=== PATIENT | female | born 1960 | race Caucasian/White ===

== ENCOUNTER 2018-05-15 17:32 | Emergency (ER) | payer MEDICARE, MEDICAID, SELFPAY ==
[2018-05-15 17:54] VITALS: BP 180/102; PULSE 88; RESP 16; TEMP 36.2; O2SAT 97; BMI 52.4
[2018-05-15] MEDS: HYDROMORPHONE 2 MG INJ 1 MG SUBCUT ×2 (18:23→19:26)
[2018-05-15] MEDS: ONDANSETRON 4 MG ODT PO (18:24)
[2018-05-15 19:06] VITALS: BP 177/89; PULSE 84; RESP 22; O2SAT 98
--- NOTE | 2018-05-16 02:14 | ED.HA ---
HPI - Headache General Chief Complaint: Headache Stated Complaint: MIGRAINE Time Seen by Provider: 05/15/18 17:45 Source: patient and family Mode of arrival: ambulatory Limitations: no limitations History of Present Illness HPI Narrative: Patient presents to the emergency department with a chief complaint of her 1st migraine and some time. It does however present similar to her prior migraines. She is gradual worsening right frontal headache with nausea but no vomiting. She denies focal neurologic findings nor any recent injury. She has no fever or chills. Pain is made worse by bright lights and loud noise and improves in a dark quiet room Complaint: migraine Onset (ago): day(s) Onset description: gradual Location: right and frontal Severity: mild Quality: aching Relieving factors: dark room Exacerbating factors: exertion, light and noise Context: occurred at rest Associated symptoms: nausea Treatments prior to arrival: none Related Data Allergies Allergy/AdvReac Type Severity Reaction Status Date / Time chlorpromazine Allergy Severe Unverified 02/14/18 12:29 [From Thorazine] droperidol [From Inapsine] Allergy Severe Unverified 02/14/18 12:29 ketorolac Allergy Severe Unverified 02/14/18 12:29 meperidine Allergy Severe Unverified 02/14/18 12:29 metoclopramide Allergy Severe Unverified 02/14/18 12:29 morphine Allergy Severe Unverified 02/14/18 12:29 prochlorperazine Allergy Severe Unverified 02/14/18 12:29 sumatriptan Allergy Severe Unverified 02/14/18 12:29 Review of Systems Review of Systems All systems reviewed & are unremarkable except as noted in HPI and below Constitutional Denies chills, Denies fever(s), Reports headache(s), Denies lethargy and Denies weakness Eyes Denies change in vision, Denies eye discharge, Denies irritation and Denies loss of vision ENT Ears, Nose, Mouth, and Throat: Denies change in voice, Reports headache(s), Denies neck pain and Denies sore throat Cardiovascular Denies chest pain, Denies irregular heart rhythm, Denies lightheadedness, Denies palpitations, Denies dyspnea, Denies dyspnea on exertion and Denies orthopnea Respiratory Denies cough, Denies dyspnea, Denies dyspnea on exertion and Denies wheezing Gastrointestinal Gastrointestinal: Denies abdominal pain, Denies change in bowel habits, Denies diarrhea, Reports nausea and Denies vomiting Genitourinary Denies hematuria, Denies flank pain, Denies urinary incontinence and Denies urinary urgency Musculoskeletal Denies neck pain Integumentary/Breasts Denies pruritus, Denies erythema, Denies rash and Denies wounds Neurologic Denies confusion, Reports headache(s), Denies loss of vision and Denies weakness Psychiatric Denies anxiety, Denies confusion, Denies depression, Denies homicidal ideation and Denies suicidal ideation Endocrine Denies palpitations Hematologic/Lymphatic Denies easy bruising Allergic/Immunologic Denies wheezing Exam Narrative Exam Narrative: 58-year-old female resting comfortably in a dark room wearing sunglasses, clutching the right side of her head Initial Vital Signs Initial Vital Signs: Vital Signs Temperature 97.1 F L 05/15/18 17:54 Pulse Rate 88 05/15/18 17:54 Respiratory Rate 16 05/15/18 17:54 Blood Pressure 180/102 H 05/15/18 17:54 Pulse Oximetry 97 05/15/18 17:54 Const General: cooperative, well developed and acute distress Nutritional Appearance: well nourished Orientation: alert, awake, oriented x3 and not confused HENMT Head: normocephalic and atraumatic Ears: external ears normal and TM's normal bilaterally Nose: external nose normal and No nasal discharge Face and sinus: sinuses nontender, face symmetric, no sinus tenderness and No dry mucous membranes Mouth: oral mucosae normal and moist mucous membranes Teeth and gingiva: dentition normal Throat: tonsils normal and uvula midline Eyes General: appearance normal, both eyes and all related structures Eyelids: eyelids normal Conjunctivae: conjunctivae normal Sclera: sclerae normal Pupils: PERRL EOM: EOM intact bilaterally Neck Neck: normal visual inspection, trachea midline, No lymphadenopathy, No midline deformity and No JVD Lymphatic: No lymphedema Cardio Rate: regular rate Rhythm: regular rhythm Heart Sounds: no click, no gallops, no murmurs and no rubs Pulses: normal peripheral pulses Back/Spine/Pelvis Back: No CVA tenderness Cervical Spine: cervical ROM normal and No pain with cervical ROM Thoracic/Lumbar Spine: thoracic and lumbar spine normal to inspection Neuro General: alert, oriented x3, gait normal and no focal motor deficits Speech: speech normal Extrem General: full ROM, no clubbing, cyanosis or edema, no pedal edema and no calf tenderness Course Orders Ordered: Discontinued Medications Hydromorphone HCl (Dilaudid) 1 mg SUBCUT NOW ONE Stop: 05/15/18 18:16 Last Admin: 05/15/18 18:23 Dose: 1 mg Hydromorphone HCl (Dilaudid) 1 mg SUBCUT NOW ONE Stop: 05/15/18 19:14 Last Admin: 05/15/18 19:26 Dose: 1 mg Ondansetron HCl (Zofran Odt) 4 mg PO NOW ONE Stop: 05/15/18 18:16 Last Admin: 05/15/18 18:24 Dose: 4 mg Reevaluation(s) Reevaluation #1: Patient feels tremendous relief after above-stated therapies. Vital Signs - 8 hr 05/15/18 19:06 Pulse Rate 84 Respiratory Rate 22 Blood Pressure [Left Wrist] 177/89 H Pulse Oximetry 98 MDM - Headache Differential Diagnosis Differential diagnosis: Likely migraine Medical Records Attestation: I reviewed the patient's medical records. MDM Narrative Medical decision making narrative: Patient has longstanding history of migraines and this follows the typical pattern. Her exam was unremarkable Discharge Plan Departure Patient Disposition: Home, Self-Care Clinical Impression: Migraine headache without aura Discharge Date/Time: 05/15/18 19:45 Interventions: ED Discharge Assessment Last Done: 05/15/18 20:07 Instructions: DI for Migraine Activity Restrictions/Additional Instructions: *You have been diagnosed with [ acute breakthrough migraine] *What to do: * continue to take medications as directed *Follow up with your primary care provider in 2-3 days *Return to ER if you should have [such as] [or] any new, worsening or concerning symptoms Referrals: Venkat Pandya, [Primary Care Provider] -
== END 2018-05-15 19:45 | disposition home or self-care (01) ==
PROVIDERS: Emergency Provider Emergency Medicine; Family Provider Family Medicine; PCP Family Medicine
DX: G43.009 Migraine without aura, not intractable, without status migrainosus (principal)
CPT/HCPCS: 96372; 99282; 99283; J1170

== ENCOUNTER → 2019-08-14 11:54 | Outpatient (CLI) | payer MEDICARE, MEDICAID, SELFPAY ==
--- NOTE | 2019-08-14 | DI.CT.S_ITS ---
PROCEDURE: CT KIDNEY URETER BLADDER (KUB) INDICATIONS: HISTORY OF KIDNEY STONES TECHNIQUE: Noncontrast 5 mm thick sections acquired from the diaphragms to the symphysis. 5 mm thick coronal and sagittal reformats were then performed. For radiation dose reduction, the following was used: automated exposure control, adjustment of mA and/or kV according to patient size. COMPARISON: Outside Film, CT, CT ABDOMEN PELVIS WITHOUT CONTRAST, 12/02/2018, 18:24. [facility], CT, KIDNEY/ URETER/BLADDER, 08/26/2015, 13:57. FINDINGS: Image quality: Mildly reduced by large body habitus. Lung bases: Lung bases are clear. Heart size is normal. Urinary system: Both kidneys are normal in size. No left-sided kidney stones but there is a newly identified calculus within the nondistended collecting system of the right kidney, lower aspect, measuring only 2-3 mm in maximal dimension. The left collecting system contains no calculus but is slightly smaller than the collecting system on the right. More inferiorly, along the right ureter, note is made of a 3 x 7 mm calcification slightly lower than the presence of a 3 mm calculus in that area 12/02/[address] scanning from [facility]. No perinephric fat stranding. Both ureters appear non-dilated throughout their expected courses. Bladder wall thickness is normal; no calcified bladder stones. Other solid organs: Liver is normal in size. Gallbladder appears normal. Pancreas is normal in contours. Spleen is normal in size. No adrenal nodules. Peritoneum and bowel: Unenhanced bowel loops demonstrate normal wall thickness and caliber. No free fluid or air. Nodes and vessels: No retroperitoneal or mesenteric adenopathy by size criteria. Aorta and inferior vena cava are normal in caliber. Abdominal wall: No ventral hernias. Pelvis: No free pelvic fluid. No inguinal hernias or adenopathy. Bones: No suspicious bony lesions. No vertebral body compression fractures. IMPRESSION: 1. Within the collecting system of the right kidney there is a 2 x 3 mm nonobstructive calculus, lower third. Next 2. Within the right ureter a 3 x 7 mm calcification is present within the distal ureter in the pelvis, slightly lower than the presence of a punctate calculus measuring approximately 3 x 3 mm on prior [facility] CT scanning 12/02/18. This calcification being present over an extended period of time may be associated with down regulation of urine outflow from the right kidney, and for this reason consideration of ureteral stent is recommended. Dictated by: Darnell Bloom M.D. on 08/14/2019 at 12:21 Approved by: Darnell Bloom M.D. on 08/14/2019 at 12:27
== END ==
PROVIDERS: PCP Family Medicine; Visit Provider Urology
DX: N28.89 Other specified disorders of kidney and ureter (principal); N23 Unspecified renal colic; Z87.442 Personal history of urinary calculi
CPT/HCPCS: 74176

== ENCOUNTER 2019-08-14 12:07 | Emergency (ER) | payer MEDICARE, MEDICAID, SELFPAY ==
[2019-08-14 12:12] VITALS: BP 116/104; PULSE 116; RESP 22; O2SAT 97; BMI 50.8
[2019-08-14 12:32] VITALS: TEMP 36.7
[2019-08-14 12:55] LABS: Add Manual Diff / Slide Review NO; Basophils Absolute Auto 100 /uL (0-100); Basophils Percent Auto 0.8 % (0-2); Eosinophils Absolute Auto 300 /uL (0-450); Eosinophils Percent Auto 3.4 % (2-4); Hematocrit 43.1 % (36-46); Hemoglobin 14.7 g/dL (12.0-16.0); Lymphocytes Absolute Auto 2300 /uL (1100-4500); Mean Corpuscular Hemoglobin 29.2 PG (26-34); Mean Corpuscular Volume 85.9 fL (80-100); Monocytes Absolute Auto 600 /uL (0-900); Monocytes Percent Auto 5.9 % (3-14); Neutrophils Absolute Auto 7000 /uL (1500-7000); Neutrophils Percent Auto 67.9 % (50-75); Platelet Count 283 X10^3/uL (150-400); Red Blood Cell Count 5.02 X10^6/uL (4.0-5.2); Red Cell Distribution Width 14.4 % (11.6-14.8); White Blood Cell Count 10.3 X10^3/uL (4.5-11.0)
[2019-08-14 12:58] LABS: INR 0.9 (0.9-1.3); Prothrombin Time 10.7 SECONDS (10.1-12.7)
[2019-08-14 13:01] LABS: PTT Partial Thromboplastin Tim 35 SECONDS (26.4-36.2)
[2019-08-14 13:03] LABS: Alanine Aminotransferase 22 IU/L (9-52); Albumin 4.5 g/dL (3.5-5.0); Albumin Globulin Ratio 1.5 (1.0-2.8); Alkaline Phosphatase 90 U/L (38-126); Aspartate Aminotransferase 28 IU/L (14-36); BUN Creatinine Ratio 22.2 (6-22); Bilirubin Total 0.3 mg/dL (0.2-1.3); Blood Urea Nitrogen 20 mg/dL (7-17); Calcium 9.8 mg/dL (8.4-10.2); Carbon Dioxide 24 mmol/L (22-32); Chloride 104 mmol/L (98-107); Estimated Glomerular Filt Rate > 60.0 mL/min (>60); Glucose 140 mg/dL (70-100); HEMOLYSIS < 15 (0-50); Lipase 84 U/L (23-300); Potassium 3.5 mmol/L (3.4-5.1); Sodium 141 mmol/L (137-145); Total Protein 7.5 g/dL (6.3-8.2)
[2019-08-14 13:50] VITALS: BP 151/84; PULSE 102; RESP 19; O2SAT 98
[2019-08-14 14:00] VITALS: BP 132/106; PULSE 99; RESP 18; O2SAT 99
[2019-08-14] MEDS: ONDANSETRON 4 MG ODT SL (14:09)
[2019-08-14] MEDS: HYDROMORPHONE 1 MG INJ IM (14:09)
--- NOTE | 2019-08-14 19:34 | ED.FEMALEGU ---
HPI - Female Genitourinary General Chief complaint: Urogenital-Female Stated complaint: states kidney stone Time Seen by Provider: 08/14/19 12:13 Source: patient Mode of arrival: Ambulatory Limitations: no limitations History of Present Illness HPI Narrative: 59-year-old female nonsmoker with history of kidney stones and hypertension presents to the emergency department with a chief complaint of severe right flank pain with radiation into her groin. She denies provocation or palliation. She denies fever, chills nor nausea or vomiting. She had a CT as an outpatient noting a stone and has an appointment with urology tomorrow. MD Complaint: pelvic pain and other Onset (ago): hour(s) Location: RLQ Female Urogenital Radiation: R Flank Severity: mild Quality: Aching and Burning Duration: intermittent Relieving factors: none Patient : No Related Data Home Medications Medication Instructions Recorded Confirmed albuterol sulfate [Ventolin HFA] 2 puff INHALATION Q4-6H PRN 08/14/19 08/14/19 amlodipine 10 mg PO DAILY 08/14/19 08/14/19 buspirone 10 mg PO DAILY 08/14/19 08/14/19 aauydryhrf-mleafcuhnjfdk-tfzi 1 cap PO Q4H PRN 08/14/19 08/14/19 butorphanol tartrate 1 - 2 spray INTRANASAL PRN PRN 08/14/19 08/14/19 celecoxib 200 mg PO BID 08/14/19 08/14/19 conjugated estrogens [Premarin] 1.25 mg PO DAILY 08/14/19 08/14/19 escitalopram oxalate 20 mg PO BID 08/14/19 08/14/19 gabapentin 300 mg PO TID 08/14/19 08/14/19 levothyroxine 200 mcg PO DAILY 08/14/19 08/14/19 lisinopril 10 mg PO DAILY 08/14/19 08/14/19 tamsulosin 0.4 mg PO DAILY 08/14/19 08/14/19 tizanidine 4 mg PO TID PRN 08/14/19 08/14/19 Previous Rx's Medication Instructions Recorded oxycodone 5 mg PO Q8H PRN #14 tab 08/14/19 Allergies Allergy/AdvReac Type Severity Reaction Status Date / Time chlorpromazine Allergy Severe Unverified 02/14/18 12:29 [From Thorazine] droperidol [From Inapsine] Allergy Severe Unverified 02/14/18 12:29 ketorolac Allergy Severe Unverified 02/14/18 12:29 meperidine Allergy Severe Unverified 02/14/18 12:29 metoclopramide Allergy Severe Unverified 02/14/18 12:29 morphine Allergy Severe Unverified 02/14/18 12:29 prochlorperazine Allergy Severe Unverified 02/14/18 12:29 sumatriptan Allergy Severe Unverified 02/14/18 12:29 Review of Systems Constitutional Constitutional: Denies chills, Denies fatigue, Denies fever(s), Denies frequent falls, Denies lethargy and Denies weakness Eyes Eyes: Denies change in vision, Denies eye discharge, Denies irritation and Denies loss of vision ENT Ears, Nose, Mouth, and Throat: Denies change in voice, Denies dizziness, Denies neck pain, Denies sore throat and Denies throat swelling Cardiovascular Cardiovascular: Denies chest pain, Denies irregular heart rhythm, Denies lightheadedness, Denies palpitations, Denies dyspnea, Denies dyspnea on exertion and Denies orthopnea Respiratory Respiratory: Denies cough, Denies dyspnea, Denies dyspnea on exertion and Denies wheezing Gastrointestinal Gastrointestinal: Denies abdominal pain, Denies change in bowel habits, Denies diarrhea, Denies nausea and Denies vomiting Genitourinary Genitourinary: Denies hematuria, Denies flank pain, Denies urinary incontinence and Denies urinary urgency Musculoskeletal Musculoskeletal: Denies back pain, Denies muscle weakness, Denies neck pain, Denies numbness and Denies tingling Integumentary/Breasts Skin/Breast: Denies pruritus, Denies erythema, Denies rash and Denies wounds Neurologic Neurologic: Denies behavioral changes, Denies confusion, Denies dizziness, Denies frequent falls, Denies loss of vision, Denies numbness, Denies tingling and Denies weakness Psychiatric Psychiatric: Denies anxiety, Denies behavioral changes, Denies confusion, Denies depression, Denies homicidal ideation and Denies suicidal ideation Endocrine Endocrine: Denies fatigue, Denies flushing and Denies palpitations Hematologic/Lymphatic Hematologic/Lymphatic: Denies easy bruising Allergic/Immunologic Allergic/Immunologic: Denies urticaria, Denies throat swelling and Denies wheezing PFSH Social History Smoking Status: Never smoker Social History Smoking Status: Never smoker Exam Narrative Exam Narrative: GENERAL: [59] year old patient appears stated age. Well-nourished, well-developed patient, in obvious pain HEAD: Atraumatic. Normocephalic. EYES: Pupils equal round and reactive. Extraocular motions intact. No scleral icterus. No injection or drainage. ENT: Nose without bleeding, purulent drainage. Throat without erythema, tonsillar hypertrophy or exudate. Airway patent. NECK: Trachea midline. Non tender CARDIOVASCULAR: Regular rate and rhythm without murmurs, gallops, or rubs. RESPIRATORY: Clear to auscultation. Breath sounds equal bilaterally. No wheezes, rales, or rhonchi. GASTROINTESTINAL: Abdomen soft, non-tender, nondistended. EXTREMITIES: No edema or joint tenderness. BACK: Nontender without deformity or crepitance. No flank tenderness. NEURO: AOx3. SKIN: No rash or erythema of visible areas Initial Vital Signs Initial Vital Signs: Vital Signs Pulse Rate 116 H 08/14/19 12:12 Respiratory Rate 22 08/14/19 12:12 Blood Pressure 116/104 H 08/14/19 12:12 Pulse Oximetry 97 08/14/19 12:12 Course Orders Ordered: ED Orders 08/14/19 12:44 Complete Blood Count AUTO DIFF Stat Comprehensive Metabolic Panel Stat Lipase Stat Partial Thromboplastin Time Stat Prothrombin Time INR Stat 08/14/19 12:58 EKG-12 Lead Stat Discontinued Medications Hydromorphone HCl (Dilaudid) 1 mg IM NOW ONE Stop: 08/14/19 14:02 Last Admin: 08/14/19 14:09 Dose: 1 mg Documented by: SHRUTI Ondansetron HCl (Zofran Odt) 4 mg SL NOW ONE Stop: 08/14/19 14:02 Last Admin: 08/14/19 14:09 Dose: 4 mg Documented by: SHRUTI Vital Signs Vital signs: Vital Signs - 8 hr 08/14/19 12:12 08/14/19 12:32 08/14/19 13:50 Temperature 98.0 F Pulse Rate 116 H 102 H Respiratory Rate 22 19 Blood Pressure 116/104 H Blood Pressure [Right Wrist] 151/84 H Pulse Oximetry 97 98 08/14/19 14:00 Temperature Pulse Rate 99 H Respiratory Rate 18 Blood Pressure Blood Pressure [Right Wrist] 132/106 H Pulse Oximetry 99 MDM - Female Genitourinary Lab Data Result diagrams: 08/14/19 12:44 08/14/19 12:44 Labs: Lab Results 08/14/19 08/14/19 08/14/19 Range/Units 12:44 12:44 12:44 WBC 10.3 (4.5-11.0) X10^3/uL RBC 5.02 (4.0-5.2) X10^6/uL Hgb 14.7 (12.0-16.0) g/dL Hct 43.1 (36-46) % MCV 85.9 (80-100) fL MCH 29.2 (26-34) PG MCHC 34.0 (30-36) % RDW 14.4 (11.6-14.8) % Plt Count 283 (150-400) X10^3/uL Neut % (Auto) 67.9 (50-75) % Lymph % (Auto) 22.0 L (25-40) % [place] % (Auto) 5.9 (3-14) % Eos % (Auto) 3.4 (2-4) % Baso % (Auto) 0.8 (0-2) % Neut # (Auto) 7000 (1060-4909) /uL Lymph # (Auto) 2300 (4165-9515) /uL [place] # (Auto) 600 (0-900) /uL Eos # (Auto) 300 (0-450) /uL Baso # (Auto) 100 (0-100) /uL PT 10.7 (10.1-12.7) SECONDS INR 0.9 (0.9-1.3) APTT 35 (26.4-36.2) SECONDS Sodium 141 (137-145) mmol/L Potassium 3.5 (3.4-5.1) mmol/L Chloride 104 (98-107) mmol/L Carbon Dioxide 24 (22-32) mmol/L BUN 20 H (7-17) mg/dL Creatinine 0.90 (0.52-1.04) mg/dL Estimated GFR > 60.0 (>60) mL/min BUN/Creatinine Ratio 22.2 H (6-22) Glucose 140 H (70-100) mg/dL Calcium 9.8 (8.4-10.2) mg/dL Total Bilirubin 0.3 (0.2-1.3) mg/dL AST 28 (14-36) IU/L ALT 22 (9-52) IU/L Alkaline Phosphatase 90 (38-126) U/L Total Protein 7.5 (6.3-8.2) g/dL Albumin 4.5 (3.5-5.0) g/dL Globulin 3.0 (1.7-4.1) g/dL Albumin/Globulin Ratio 1.5 (1.0-2.8) Lipase 84 (23-300) U/L Urine Dip Bedside Urine Glucose Negative Bedside Urine Bilirubin - Negative Bedside Urine Ketone - Negative Urine Specific [place] 1.015 Bedside Urine Occult Blood +/- Bedside Urine pH 5.5 Bedside Urine Protein - Negative Bedside Urine Urobilinogen - Negative Bedside Urine Nitrite - Negative Bedside Urine Leukocytes - Negative Esterase Imaging Data CT scan - abdomen: Radiologist's impression: [place] [address] CT Scan Report Signed Patient: Chayito Taylor R#: [id number] : 2Acct:[id number] Age/Sex: 59 / FDate of Service: 08/14/19 Loc: CT Accession Number: [id number] Procedure: CT kidney ureter bladder (KUB) Ordering Provider: Enid Walters MD PROCEDURE: CT KIDNEY URETER BLADDER (KUB) INDICATIONS: HISTORY OF KIDNEY STONES TECHNIQUE: Noncontrast 5 mm thick sections acquired from the diaphragms to the symphysis. 5 mm thick coronal and sagittal reformats were then performed. For radiation dose reduction, the following was used: automated exposure control, adjustment of mA and/or kV according to patient size. COMPARISON: Outside Film, CT, CT ABDOMEN PELVIS WITHOUT CONTRAST, 12/02/2018, 18:24. [facility], CT, KIDNEY/ URETER/BLADDER, 08/26/2015, 13:57. FINDINGS: Image quality: Mildly reduced by large body habitus. Lung bases: Lung bases are clear. Heart size is normal. Urinary system: Both kidneys are normal in size. No left-sided kidney stones but there is a newly identified calculus within the nondistended collecting system of the right kidney, lower aspect, measuring only 2-3 mm in maximal dimension. The left collecting system contains no calculus but is slightly smaller than the collecting system on the right. More inferiorly, along the right ureter, note is made of a 3 x 7 mm calcification slightly lower than the presence of a 3 mm calculus in that area 12/02/[address] scanning from [facility]. No perinephric fat stranding. Both ureters appear non-dilated throughout their expected courses. Bladder wall thickness is normal; no calcified bladder stones. Other solid organs: Liver is normal in size. Gallbladder appears normal. Pancreas is normal in contours. Spleen is normal in size. No adrenal nodules. Peritoneum and bowel: Unenhanced bowel loops demonstrate normal wall thickness and caliber. No free fluid or air. Nodes and vessels: No retroperitoneal or mesenteric adenopathy by size criteria. Aorta and inferior vena cava are normal in caliber. Abdominal wall: No ventral hernias. Pelvis: No free pelvic fluid. No inguinal hernias or adenopathy. Bones: No suspicious bony lesions. No vertebral body compression fractures. IMPRESSION: 1. Within the collecting system of the right kidney there is a 2 x 3 mm nonobstructive calculus, lower third. Next 2. Within the right ureter a 3 x 7 mm calcification is present within the distal ureter in the pelvis, slightly lower than the presence of a punctate calculus measuring approximately 3 x 3 mm on prior [facility] CT scanning 12/02/18. This calcification being present over an extended period of time may be associated with down regulation of urine outflow from the right kidney, and for this reason consideration of ureteral stent is recommended. Dictated by: Darnell Bloom M.D. on 08/14/2019 at 12:21 Approved by: Darnell Bloom M.D. on 08/14/2019 at 12:27 Discharge Plan Departure Patient Disposition: Home Clinical Impression: Kidney calculi Discharge Date/Time: 08/14/19 14:25 Instructions: DI for Kidney Stones Activity Restrictions/Additional Instructions: *You have been diagnosed with [right-sided kidney stone] *What to do: *Take medications as directed *Follow up with your urologist as planned. Let them know you were seen in the Emergency Department and that we ask that you be seen in follow up *Return to ER if you should have any new, worsening or concerning symptoms Prescriptions: New oxycodone 5 mg tablet 5 mg PO Q8H PRN (Reason: pain) Qty: 14 RF: 0 No Action celecoxib 200 mg capsule 200 mg PO BID RF: 0 butorphanol tartrate 10 mg/mL spray,non-aerosol 1 - 2 spray INTRANASAL PRN PRN (Reason: Headache) RF: 0 dcjumgkfdc-dohuvngmvnedg-iufu 50-325-40 mg capsule 1 cap PO Q4H PRN (Reason: Headache) RF: 0 tizanidine 4 mg tablet 4 mg PO TID PRN (Reason: Spasms) RF: 0 tamsulosin 0.4 mg capsule 0.4 mg PO DAILY RF: 0 amlodipine 10 mg tablet 10 mg PO DAILY RF: 0 buspirone 10 mg tablet 10 mg PO DAILY RF: 0 lisinopril 10 mg tablet 10 mg PO DAILY RF: 0 gabapentin 300 mg capsule 300 mg PO TID RF: 0 levothyroxine 200 mcg tablet 200 mcg PO DAILY RF: 0 albuterol sulfate [Ventolin HFA] 90 mcg/actuation HFA aerosol inhaler 2 puff inhalation Q4-6H PRN (Reason: Shortness Of Breath Or Wheezing) RF: 0 Premarin 1.25 mg tablet 1.25 mg PO DAILY RF: 0 escitalopram oxalate 20 mg tablet 20 mg PO BID RF: 0 Referrals: Venkat Pandya DO [Primary Care Provider] -
== END 2019-08-14 14:25 | disposition home or self-care (01) ==
PROVIDERS: Emergency Provider Emergency Medicine; PCP Family Medicine
DX: N20.0 Calculus of kidney (principal); Z87.442 Personal history of urinary calculi; R10.9 Unspecified abdominal pain; N28.89 Other specified disorders of kidney and ureter; N23 Unspecified renal colic
CPT/HCPCS: 36415; 74176; 80053; 81003; 83690; 85025; 85610; 85730; 93005; 96372; 99283; 99284; J1170

== ENCOUNTER 2023-10-31 17:35 | Emergency (ER) | payer MEDICARE, MEDICAID, SELFPAY ==
[2023-10-31 17:42] VITALS: BP 174/94; PULSE 83; RESP 22; TEMP 36.9; O2SAT 95; BMI 46.5
--- NOTE | 2023-10-31 19:26 | ED.HA ---
HPI - Headache General Chief Complaint: Headache Stated Complaint: migraine T-3 Time Seen by Provider: 10/31/23 18:49 Source: patient Mode of arrival: Wheelchair Limitations: no limitations History of Present Illness HPI Narrative: Patient is a 63-year-old female. Has a longstanding history of migraine headaches. She normally takes intranasal stadol and Fioricet however she has been out of her intranasal medication. She has a prescription for this it just has not come into the male. She has had 3 days of what she describes as 1 of her typical migraines. Yesterday she went to an outside emergency department. She stated that they were going to give her medications that she was allergic to so she decided to leave without being treated. She arrives to the emergency department today with continued headaches. No neck pain. No fevers. Trauma. Related Data Home Medications Medication Instructions Recorded Confirmed albuterol sulfate 90 mcg/actuation 2 puff inhalation Q4-6H PRN 08/14/19 08/14/19 aerosol inhaler (Ventolin HFA) Shortness Of Breath Or Wheezing amlodipine 10 mg tablet 10 mg PO DAILY 08/14/19 08/14/19 buspirone 10 mg tablet 10 mg PO DAILY 08/14/19 08/14/19 ehmeswmzip-vgqoahnzaswip-ulfnkmbn 1 cap PO Q4H PRN Headache 08/14/19 08/14/19 50 mg-325 mg-40 mg capsule butorphanol 10 mg/mL nasal spray 1 - 2 spray intranasal PRN PRN 08/14/19 08/14/19 Headache celecoxib 200 mg capsule 200 mg PO BID 08/14/19 08/14/19 conjugated estrogens 1.25 mg 1.25 mg PO DAILY 08/14/19 08/14/19 tablet (Premarin) escitalopram oxalate 20 mg tablet 20 mg PO BID 08/14/19 08/14/19 gabapentin 300 mg capsule 300 mg PO TID 08/14/19 08/14/19 levothyroxine 200 mcg tablet 200 mcg PO DAILY 08/14/19 08/14/19 lisinopril 10 mg tablet 10 mg PO DAILY 08/14/19 08/14/19 tamsulosin 0.4 mg capsule 0.4 mg PO DAILY 08/14/19 08/14/19 tizanidine 4 mg tablet 4 mg PO TID PRN Spasms 08/14/19 08/14/19 Previous Rx's Medication Instructions Recorded oxycodone 5 mg tablet 5 mg PO Q8H PRN pain #14 tabs 08/14/19 Allergies Allergy/AdvReac Type Severity Reaction Status Date / Time chlorpromazine Allergy Severe Swelling Unverified 10/31/23 17:42 [From Thorazine] of Lip/Tongue/Throat droperidol [From Inapsine] Allergy Severe Seizure Unverified 10/31/23 17:47 ketorolac Allergy Severe Swelling Unverified 10/31/23 17:42 of Lip/Tongue/Throat meperidine Allergy Severe Rash Unverified 10/31/23 17:42 metoclopramide Allergy Severe Seizure Unverified 10/31/23 17:47 morphine Allergy Severe ITCHING Unverified 10/31/23 17:47 prochlorperazine Allergy Severe Hives Unverified 10/31/23 17:42 sumatriptan Allergy Severe Hives Unverified 10/31/23 17:42 midazolam [From Versed] Allergy Hallucinati Verified 10/31/23 17:47 ng tramadol Allergy Hallucinati Verified 10/31/23 17:47 ng Review of Systems Constitutional Constitutional: Reports system reviewed and no additional complaints, except as documented Eyes Eyes: Reports system reviewed and no additional complaints, except as documented ENT Ears, Nose, Mouth, and Throat: Reports system reviewed and no additional complaints, except as documented Musculoskeletal Musculoskeletal: Reports system reviewed and no additional complaints, except as documented Neurologic Neurologic: Reports system reviewed and no additional complaints, except as documented Allergic/Immunologic Allergic/Immunologic: Reports system reviewed and no additional complaints, except as documented Patient History Social History Smoking Status: Never smoker Smoking Status: Never smoker alcohol intake frequency: holidays/special occasions only Substance Use Type: does not use Exam Initial Vital Signs Initial Vital Signs: Vital Signs Temperature 98.5 F 10/31/23 17:42 Pulse Rate 83 10/31/23 17:42 Respiratory Rate 22 10/31/23 17:42 Blood Pressure 174/94 H 10/31/23 17:42 Pulse Oximetry 95 10/31/23 17:42 Oxygen Delivery Method Room Air 10/31/23 17:42 Const General: cooperative and No ill appearing HENMT Head: normal to inspection and normocephalic Resp Effort & Inspection: normal respiratory effort Cardio Rate: regular rate Neuro General: patient alert, patient awake and moves all extremities Cognition: normal cognition Speech: speech normal Motor: muscle tone normal throughout Course Orders Ordered: Discontinued Medications Hydromorphone HCl (Hydromorphone 1 Mg Inj) 1 mg IV NOW ONE Stop: 10/31/23 19:30 Last Admin: 10/31/23 19:54 Dose: 1 mg Documented By: EDWAR Hydromorphone HCl (Hydromorphone 1 Mg Inj) 1 mg IV NOW ONE Stop: 10/31/23 21:05 Last Admin: 10/31/23 21:14 Dose: 1 mg Documented By: EDWAR Ondansetron HCl 8 mg/ Sodium (Chloride) 54 mls @ 216 mls/hr IV NOW ONE Stop: 10/31/23 19:28 Last Admin: 10/31/23 21:00 Dose: Not Given Documented By: EDWAR Sodium Chloride (Normal Saline 0.9%) 1,000 mls @ 1,000 mls/hr IV BOLUS ONE Stop: 10/31/23 20:26 Last Infusion: 10/31/23 22:06 Dose: Infused Documented By: Admin: 10/31/23 19:53 Dose: 1,000 mls/hr Documented By: EDWAR Ondansetron HCl (Ondansetron 4 Mg/2 Ml Inj) 4 mg IV NOW ONE Stop: 10/31/23 19:46 Last Admin: 10/31/23 19:54 Dose: 4 mg Documented By: EDWAR Ondansetron HCl (Ondansetron 4 Mg/2 Ml Inj) 4 mg IV NOW ONE Stop: 10/31/23 19:48 Last Admin: 10/31/23 19:54 Dose: 4 mg Documented By: EDWAR Vital Signs Vital signs: Vital Signs - 8 hr 10/31/23 20:54 10/31/23 21:00 10/31/23 21:01 Pulse Rate 67 65 65 Respiratory Rate Blood Pressure Pulse Oximetry 97 98 97 10/31/23 21:01 10/31/23 21:30 10/31/23 21:31 Pulse Rate 67 67 Respiratory Rate Blood Pressure 218/97 H Pulse Oximetry 95 96 10/31/23 21:31 Pulse Rate Respiratory Rate 18 Blood Pressure 185/98 H Pulse Oximetry MDM - Headache MDM Narrative Medical decision making narrative: Patient reports improvement of symptoms with the above-stated therapies. I have low suspicion for intracranial hemorrhage. Low suspicion for meningitis. There was no indication for radiologic studies. She has medications already ordered and should be at her house within the next couple days for trying to help her symptoms. Will discharge patient home with return precautions. She expressed understanding and agreement. Discharge Plan Departure Patient Disposition: Home Clinical Impression: Headache Instructions: DI for Headache Activity Restrictions/Additional Instructions: Recommend that you continue to take all of your medications as directed. Contact your primary care doctor for a follow-up. Return to the emergency department for new or worsening symptoms. Prescriptions: No Action celecoxib 200 mg capsule 200 mg PO BID Patient Comments: TK 1 C PO BID PRF PAIN butorphanol 10 mg/mL spray,non-aerosol 1 - 2 spray INTRANASAL PRN PRN (Reason: Headache) Rx Instructions: INSTILL ONE TO TWO SPRAYS IN EACH NOSTRIL UP TO Q 8 H PRF HEADACHE fjdcbcwqih-jqipzdwxjaadd-rpyn 50-325-40 mg capsule 1 cap PO Q4H PRN (Reason: Headache) Patient Comments: TK 1 C PO Q 4 H PRF GUZMÁN tizanidine 4 mg tablet 4 mg PO TID PRN (Reason: Spasms) Patient Comments: TK 1 T PO TID PRN tamsulosin 0.4 mg capsule 0.4 mg PO DAILY amlodipine 10 mg tablet 10 mg PO DAILY buspirone 10 mg tablet 10 mg PO DAILY lisinopril 10 mg tablet 10 mg PO DAILY Patient Comments: TK 1 T PO QD FOR HIGH BP gabapentin 300 mg capsule 300 mg PO TID levothyroxine 200 mcg tablet 200 mcg PO DAILY Patient Comments: TK 1 T PO D albuterol sulfate [Ventolin HFA] 90 mcg/actuation HFA aerosol inhaler 2 puff inhalation Q4-6H PRN (Reason: Shortness Of Breath Or Wheezing) Patient Comments: INHALE 2 PUFFS PO Q FOUR TO SIX H PRF SHORTNESS OF BREATH OR WHEEZING Premarin 1.25 mg tablet 1.25 mg PO DAILY Patient Comments: TK 1 T PO QD escitalopram oxalate 20 mg tablet 20 mg PO BID Patient Comments: TK 1 T PO BID oxycodone 5 mg tablet 5 mg PO Q8H PRN (Reason: pain) Qty: 14 0RF Referrals: Forbes,Scott, MD [Primary Care Provider] - Stand Alone Forms: Patient Portal/API
[2023-10-31] MEDS: SODIUM CHLORIDE 0.9% 1,000 ML 1000 ML IV (19:53)
[2023-10-31] MEDS: ONDANSETRON 4 MG/2 ML INJ IV ×2 (19:54)
[2023-10-31] MEDS: HYDROMORPHONE 1 MG INJ IV ×2 (19:54→21:14)
--- NOTE | 2023-10-31 20:00 | PC.NURSE ---
pt was seen at [facility] yesterday for migraine but pt left pt states they were going to give her something she was allergic to, pt statse she tried to rest today but the migraine could not be relieved. pt applied ice to the back of her neck which helps but does not relieve the pain
[2023-10-31 20:54] VITALS: PULSE 67; O2SAT 97
[2023-10-31 21:00] VITALS: PULSE 65; O2SAT 98
[2023-10-31 21:01] VITALS: BP 218/97; PULSE 65; O2SAT 97
[2023-10-31 21:30] VITALS: PULSE 67; O2SAT 95
[2023-10-31 21:31] VITALS: BP 185/98; PULSE 67; RESP 18; O2SAT 96
== END 2023-10-31 22:07 | disposition home or self-care (01) ==
PROVIDERS: Emergency Provider Emergency Medicine; PCP Family Medicine
DX: R51.9 Headache, unspecified (principal); Z79.899 Other long term (current) drug therapy
CPT/HCPCS: 96361; 96374; 96375; 96376; 99283; 99284; J1170; J2405

== ENCOUNTER 2023-11-25 18:25 | Emergency (ER) | payer MEDICARE, MEDICAID, SELFPAY ==
[2023-11-25 18:34] VITALS: BP 181/94; PULSE 72; RESP 16; TEMP 37.1; O2SAT 97; BMI 45.1
[2023-11-25 18:36] VITALS: PULSE 71; O2SAT 95
[2023-11-25 18:42] VITALS: BP 167/87; PULSE 71; O2SAT 95
--- NOTE | 2023-11-25 18:45 | ED.FEMALEGU ---
HPI - Female Genitourinary General Chief complaint: Urogenital-Female Stated complaint: poss kidney stone or UTI Time Seen by Provider: 11/25/23 18:36 Source: patient, RN notes reviewed and old records reviewed Limitations: no limitations History of Present Illness HPI Narrative: 63-year-old female with history of kidney stones, hypertension, asthma, chronic pain with osteonecrosis, migraines who presents with complaint suspected kidney stone and/or infection. Patient states day before yesterday started having dysuria, urgency and frequency started developing flank pain on the right side yesterday. Has increased over the last 24 hours. She does note a temperature between 100- 101 F She has been nauseated but taking Zofran which she had at home. Patient states normal bowel movements no black or bloody stools. She does describe dysuria, urgency and frequency. Denies much anterior abdominal pain. She takes Percocet normally for pain and states that has been inadequate for pain control. Patient notes multiple allergies to medications including pain medications, antinausea medications and NSAIDs. She has seen Urology in the past has had a ureteral stent. Follows with Dr. Enid Walters for Urology at [facility]. Patient states she has also had hysterectomy in the past as well. No tobacco, occasional alcohol, no recreational drugs. She is accompanied by a friend. Related Data Home Medications Medication Instructions Recorded Confirmed albuterol sulfate 90 mcg/actuation 2 puff inhalation Q4-6H PRN 08/14/19 08/14/19 aerosol inhaler (Ventolin HFA) Shortness Of Breath Or Wheezing amlodipine 10 mg tablet 10 mg PO DAILY 08/14/19 08/14/19 buspirone 10 mg tablet 10 mg PO DAILY 08/14/19 08/14/19 [id number]-kanopnakwshmm-nkvzknbm 1 cap PO Q4H PRN Headache 08/14/19 08/14/19 50 mg-325 mg-40 mg capsule butorphanol 10 mg/mL nasal spray 1 - 2 spray intranasal PRN PRN 08/14/19 08/14/19 Headache celecoxib 200 mg capsule 200 mg PO BID 08/14/19 08/14/19 conjugated estrogens 1.25 mg 1.25 mg PO DAILY 08/14/19 08/14/19 tablet (Premarin) escitalopram oxalate 20 mg tablet 20 mg PO BID 08/14/19 08/14/19 gabapentin 300 mg capsule 300 mg PO TID 08/14/19 08/14/19 levothyroxine 200 mcg tablet 200 mcg PO DAILY 08/14/19 08/14/19 lisinopril 10 mg tablet 10 mg PO DAILY 08/14/19 08/14/19 tamsulosin 0.4 mg capsule 0.4 mg PO DAILY 08/14/19 08/14/19 tizanidine 4 mg tablet 4 mg PO TID PRN Spasms 08/14/19 08/14/19 Previous Rx's Medication Instructions Recorded oxycodone 5 mg tablet 5 mg PO Q8H PRN pain #14 tabs 08/14/19 cefixime 400 mg capsule 400 mg PO DAILY 7 days #7 caps 11/25/23 Allergies Allergy/AdvReac Type Severity Reaction Status Date / Time chlorpromazine Allergy Severe Swelling Unverified 10/31/23 17:42 [From Thorazine] of Lip/Tongue/Throat droperidol [From Inapsine] Allergy Severe Seizure Unverified 10/31/23 17:47 ketorolac Allergy Severe Swelling Unverified 10/31/23 17:42 of Lip/Tongue/Throat meperidine Allergy Severe Rash Unverified 10/31/23 17:42 metoclopramide Allergy Severe Seizure Unverified 10/31/23 17:47 morphine Allergy Severe ITCHING Unverified 10/31/23 17:47 prochlorperazine Allergy Severe Hives Unverified 10/31/23 17:42 sumatriptan Allergy Severe Hives Unverified 10/31/23 17:42 midazolam [From Versed] Allergy Hallucinati Verified 10/31/23 17:47 ng tramadol Allergy Hallucinati Verified 10/31/23 17:47 ng Review of Systems Review of Systems ROS Unobtainable: All systems reviewed & are unremarkable except as noted in HPI and below Patient History alcohol intake frequency: holidays/special occasions only Substance Use Type: does not use Exam Narrative Exam Narrative: GENERAL: Alert and oriented x three, female in moderate distress. HEENT: Head normocephalic, atraumatic, EOMI, pupils reactive, face symmetric, moist mucous membranes NECK: Supple, full range of motion CARDIOVASCULAR: Regular rate and rhythm without murmurs, rubs or gallops. RESPIRATORY: Breath sounds equal bilaterally, no wheezes rales or rhonchi. ABDOMEN: Soft, nontender with palpation. Normoactive bowel sounds all 4 quadrants. No guarding or rebound, rigidity, no mass : No CVA tenderness EXTREMITIES: Normal range of motion, no clubbing or edema. Neurovascularly intact NEUROLOGICAL: Cranial nerves II through XII grossly intact. Moving all extremities SKIN: Warm, dry, no petechiae, no rashes or lesions. Initial Vital Signs Initial Vital Signs: Vital Signs Temperature 98.7 F 11/25/23 18:34 Pulse Rate 72 11/25/23 18:34 Respiratory Rate 16 11/25/23 18:34 Blood Pressure 181/94 H 11/25/23 18:34 Pulse Oximetry 97 11/25/23 18:34 Oxygen Delivery Method Room Air 11/25/23 18:34 Course Orders Ordered: ED Orders 11/25/23 18:48 CT kidney ureter bladder (KUB) Stat 11/25/23 18:57 Urine Culture Stat Urine Microscopic Stat 11/25/23 19:40 CBC Auto Diff [Complete Blood Count AUTO DIFF] Stat CMP [Comprehensive Metabolic Panel] Stat Lipase Stat Discontinued Medications Ceftriaxone Sodium (Ceftriaxone 2,000 Mg Vial) 1,000 mg IM NOW ONE Stop: 11/25/23 20:39 Last Admin: 11/25/23 21:03 Dose: 1,000 mg Documented By: EMERSON Hydromorphone HCl (Hydromorphone 1 Mg Inj) 1 mg IM NOW ONE Stop: 11/25/23 20:39 Last Admin: 11/25/23 21:04 Dose: 1 mg Documented By: EMERSON Ondansetron HCl (Ondansetron 4 Mg/2 Ml Inj) 4 mg IV NOW ONE Stop: 11/25/23 18:38 Last Admin: 11/25/23 19:40 Dose: Not Given Documented By: EMERSON Ondansetron HCl (Ondansetron 4 Mg Odt) 4 mg SL NOW ONE Stop: 11/25/23 20:39 Last Admin: 11/25/23 21:05 Dose: 4 mg Documented By: EMERSON Vital Signs Vital signs: Vital Signs - 8 hr 11/25/23 18:34 11/25/23 18:36 11/25/23 18:42 Temperature 98.7 F Pulse Rate 72 71 Respiratory Rate 16 Blood Pressure 181/94 H 167/87 H Pulse Oximetry 97 95 Oxygen Delivery Method Room Air 11/25/23 18:42 11/25/23 21:17 Temperature Pulse Rate 71 63 Respiratory Rate Blood Pressure Pulse Oximetry 95 94 Oxygen Delivery Method MDM - Female Genitourinary Lab Data 11/25/23 19:40 11/25/23 19:40 Labs: Lab Results 11/25/23 11/25/23 Range/Units 18:57 19:40 WBC 10.9 (4.5-11.0) X10^3/uL RBC 4.58 (4.0-5.2) X10^6/uL Hgb 13.5 (12.0-16.0) g/dL Hct 40.5 (36-46) % MCV 88.4 (80-100) fL MCH 29.4 (26-34) PG MCHC 33.3 (30-36) % RDW 14.5 (11.6-14.8) % Plt Count 257 (150-400) X10^3/uL Neut % (Auto) 59.5 (50-75) % Lymph % (Auto) 28.5 (25-40) % [place] % (Auto) 7.1 (3-14) % Eos % (Auto) 4.0 (2-4) % Baso % (Auto) 0.9 (0-2) % Neut # (Auto) 6500 (7629-4033) /uL Lymph # (Auto) 3100 (6791-4918) /uL [place] # (Auto) 800 (0-900) /uL Eos # (Auto) 400 (0-450) /uL Baso # (Auto) 100 (0-100) /uL Sodium 137 (137-145) mmol/L Potassium 3.8 (3.4-5.1) mmol/L Chloride 103 (98-107) mmol/L Carbon Dioxide 25 (22-32) mmol/L BUN 32 H (7-17) mg/dL Creatinine 0.93 (0.52-1.04) mg/dL Estimated GFR > 60 (>60) mL/min BUN/Creatinine Ratio 34.4 H (6-22) Glucose 95 (80-110) mg/dL Calcium 9.2 (8.4-10.2) mg/dL Total Bilirubin 0.3 (0.2-1.3) mg/dL AST 25 (14-36) IU/L ALT 24 (<35) IU/L Alkaline Phosphatase 81 (38-126) U/L Total Protein 6.7 (6.3-8.2) g/dL Albumin 3.9 (3.5-5.0) g/dL Globulin 2.8 (1.7-4.1) g/dL Albumin/Globulin Ratio 1.4 (1.0-2.8) Lipase 103 (23-300) U/L Urine RBC None seen (0-5/HPF) Urine WBC 10-30/hpf H (0-5/HPF) Ur Squamous Epith Cells 0-1 /hpf (0-5/HPF) Ur Transition Epith Cell 0-1/hpf (0-5/HPF) Urine Bacteria Few (2-10) H (None) Urine Mucus 1+ H (Negative) Ur Culture Indicated? Specimen cultured Vol Urine Centrifuged 10ml (spun) Urine Dip Bedside Urine Glucose Negative Bedside Urine Bilirubin - Negative Bedside Urine Ketone +/- 5 Urine Specific [place] 1.025 Bedside Urine Occult Blood - Negative Bedside Urine pH 6.0 Bedside Urine Protein +/- 15 Bedside Urine Urobilinogen - Negative Bedside Urine Nitrite + Positive Bedside Urine Leukocytes +/- [address] scan - abdomen/pelvis: Radiologist's Impression: [place] [address] CT Scan Report Signed Patient: Chayito Taylor MR#: [id number] : 1960 Acct:[id number] Age/Sex: 63 / F Date of Service: 11/25/23 Loc: ED Accession Number: [id number] Procedure: CT kidney ureter bladder (KUB) Ordering Provider: Estefany Muhammad D.O. PROCEDURE: CT KIDNEY URETER BLADDER (KUB) INDICATIONS: R flank pain, hx kidney stones, also uti symptoms TECHNIQUE: Axial sections were acquired from the lung bases to the pubic symphysis. Coronal and sagittal reformats were performed. For radiation dose reduction, the following was used: automated exposure control, adjustment of mA and/or kV according to patient size. COMPARISON: [facility], CT, CT KIDNEY URETER BLADDER (KUB), 08/14/2019, 11:58. [facility], CT, KIDNEY/ URETER/BLADDER, 08/26/2015, 13:57. FINDINGS: Image quality: Diagnostic. Lower Chest: No significant findings. URINARY: Right Kidney: No stones or hydronephrosis. Right Ureter: No hydroureter. Left Kidney: No stones or hydronephrosis. Left Ureter: No hydroureter. Bladder: Normal wall thickness. No stones. ABDOMEN: Liver: No contour-deforming solid mass. Liver is mildly enlarged, measuring up to 20 cm in craniocaudal dimension.. Gallbladder: No radiopaque gallstones or wall thickening. Biliary ducts: No biliary dilation. Pancreas: No ductal dilation. Spleen: Size is within normal limits. Adrenal Glands: No adrenal nodules. Stomach and Bowel: Normal colonic caliber, without significant wall thickening. Moderate stool is seen throughout the right colon. Normal appendix. Small bowel loops and stomach are unremarkable. Peritoneum: No abnormal intraperitoneal fluid. No free air. Ventral Wall: No hernia. Abdominal Nodes: No enlarged retroperitoneal or mesenteric lymph nodes. Vessels: Aorta and inferior vena cava are normal in size. PELVIS: Pelvic Organs: Status post hysterectomy. Pelvic Nodes: Unremarkable. Miscellaneous: No inguinal hernias are seen. Bones: Multilevel degenerative changes are seen in the spine. Severe left hip osteoarthrosis. IMPRESSION: 1. No renal or ureteral calculus or hydronephrosis. 2. Moderate colonic stool. 3. Mild hepatomegaly. 4. Severe left hip osteoarthrosis has significantly progressed when compared to the prior CT. Approved by: Santana Cox M.D. on 11/25/2023 at 19:51 MDM Narrative Medical decision making narrative: 63-year-old female comes in with complaint of flank pain and dysuria, urgency and frequency. Patient head CT KUB which is negative for stone, moderate colonic stool, mild hepatomegaly severe left hip osteoarthritis significantly progressed compared to prior CT. Labs including CBC C, CMP and lipase are negative for significant change other than BUN of 32. Otherwise normal. Urine is positive for nitrates, leukocyte esterase, 30 wbc's, no RBCs, 0-1 squamous, 0-1 transitional cells few bacteria with 1+ mucus. The specimen was sent for culture. Patient had difficult IV stick but was able to get blood. Discussed with patient plan to treat for potential pyelonephritis although no flank pain on palpation but she has pain for clinical history. Patient does have multiple medication allergies but does not appear to have any antibiotic allergies. She is nauseated but not vomiting. She prefers to have a dose of IM Rocephin rather than Zofran and oral antibiotic here in the department. Discharge Plan Departure Patient Disposition: Home Clinical Impression: Pyelonephritis Instructions: DI for Kidney Infection Activity Restrictions/Additional Instructions: Follow up with physician for recheck as needed, you do not have a kidney stone on your CT scan today but you do appear to have an infection in your urine. Take antibiotics until completed. You can start your first oral dose tomorrow, take once daily x 7 days. Prescription sent to [facility] in [place]. Please return for fevers, rapidly worsening symptoms, persistent vomiting, lightheadedness or passing out or other new or concerning changes. Prescriptions: New cefixime 400 mg capsule 400 mg PO DAILY 7 Days Qty: 7 0RF No Action celecoxib 200 mg capsule 200 mg PO BID Patient Comments: TK 1 C PO BID PRF PAIN butorphanol 10 mg/mL spray,non-aerosol 1 - 2 spray INTRANASAL PRN PRN (Reason: Headache) Rx Instructions: INSTILL ONE TO TWO SPRAYS IN EACH NOSTRIL UP TO Q 8 H PRF HEADACHE koytijcjpj-teavshekqfbka-hutf 50-325-40 mg capsule 1 cap PO Q4H PRN (Reason: Headache) Patient Comments: TK 1 C PO Q 4 H PRF GUZMÁN tizanidine 4 mg tablet 4 mg PO TID PRN (Reason: Spasms) Patient Comments: TK 1 T PO TID PRN tamsulosin 0.4 mg capsule 0.4 mg PO DAILY amlodipine 10 mg tablet 10 mg PO DAILY buspirone 10 mg tablet 10 mg PO DAILY lisinopril 10 mg tablet 10 mg PO DAILY Patient Comments: TK 1 T PO QD FOR HIGH BP gabapentin 300 mg capsule 300 mg PO TID levothyroxine 200 mcg tablet 200 mcg PO DAILY Patient Comments: TK 1 T PO D albuterol sulfate [Ventolin HFA] 90 mcg/actuation HFA aerosol inhaler 2 puff inhalation Q4-6H PRN (Reason: Shortness Of Breath Or Wheezing) Patient Comments: INHALE 2 PUFFS PO Q FOUR TO SIX H PRF SHORTNESS OF BREATH OR WHEEZING Premarin 1.25 mg tablet 1.25 mg PO DAILY Patient Comments: TK 1 T PO QD escitalopram oxalate 20 mg tablet 20 mg PO BID Patient Comments: TK 1 T PO BID oxycodone 5 mg tablet 5 mg PO Q8H PRN (Reason: pain) Qty: 14 0RF Referrals: Scott Forbes MD [Primary Care Provider] - Stand Alone Forms: Patient Portal/API
--- NOTE | 2023-11-25 18:48 | DI.CT.S_ITS ---
PROCEDURE: CT KIDNEY URETER BLADDER (KUB) INDICATIONS: R flank pain, hx kidney stones, also uti symptoms TECHNIQUE: Axial sections were acquired from the lung bases to the pubic symphysis. Coronal and sagittal reformats were performed. For radiation dose reduction, the following was used: automated exposure control, adjustment of mA and/or kV according to patient size. COMPARISON: [facility], CT, CT KIDNEY URETER BLADDER (KUB), 08/14/2019, 11:58. [facility], CT, KIDNEY/ URETER/BLADDER, 08/26/2015, 13:57. FINDINGS: Image quality: Diagnostic. Lower Chest: No significant findings. URINARY: Right Kidney: No stones or hydronephrosis. Right Ureter: No hydroureter. Left Kidney: No stones or hydronephrosis. Left Ureter: No hydroureter. Bladder: Normal wall thickness. No stones. ABDOMEN: Liver: No contour-deforming solid mass. Liver is mildly enlarged, measuring up to 20 cm in craniocaudal dimension.. Gallbladder: No radiopaque gallstones or wall thickening. Biliary ducts: No biliary dilation. Pancreas: No ductal dilation. Spleen: Size is within normal limits. Adrenal Glands: No adrenal nodules. Stomach and Bowel: Normal colonic caliber, without significant wall thickening. Moderate stool is seen throughout the right colon. Normal appendix. Small bowel loops and stomach are unremarkable. Peritoneum: No abnormal intraperitoneal fluid. No free air. Ventral Wall: No hernia. Abdominal Nodes: No enlarged retroperitoneal or mesenteric lymph nodes. Vessels: Aorta and inferior vena cava are normal in size. PELVIS: Pelvic Organs: Status post hysterectomy. Pelvic Nodes: Unremarkable. Miscellaneous: No inguinal hernias are seen. Bones: Multilevel degenerative changes are seen in the spine. Severe left hip osteoarthrosis. IMPRESSION: 1. No renal or ureteral calculus or hydronephrosis. 2. Moderate colonic stool. 3. Mild hepatomegaly. 4. Severe left hip osteoarthrosis has significantly progressed when compared to the prior CT. Approved by: Santana Cox M.D. on 11/25/2023 at 19:51
[2023-11-25 19:23] LABS: Urine Volume 10mL (spun)
--- NOTE | 2023-11-25 19:40 | PC.NURSE ---
Unsuccessful IV insertion attempts X 3 (LAC & R. wrist X 2) by this RN & X 1 RAC by other RN. Blood for labs obtained from R. wrist attempt but unable to advance cathelon beyond tip.
[2023-11-25 19:52] LABS: Bacteria Urine Few (2-10); Culture Indicated Urine Specimen Cultured; Mucus Urine 1+ (Negative); RBC Urine None Seen (0-5/HPF); Squamous Epithelial Cell Urine 0-1 /HPF (0-5/HPF); Transitional Epi Cells Urine 0-1/HPF (0-5/HPF)
[2023-11-25 19:53] LABS: WBC Urine 10-30/HPF (0-5/HPF)
[2023-11-25 20:19] LABS: Add Manual Diff / Slide Review NO; Basophils Absolute Auto 100 /uL (0-100); Basophils Percent Auto 0.9 % (0-2); Eosinophils Absolute Auto 400 /uL (0-450); Hematocrit 40.5 % (36-46); Hemoglobin 13.5 g/dL (12.0-16.0); Lymphocytes Absolute Auto 3100 /uL (1100-4500); Lymphocytes Percent Auto 28.5 % (25-40); Mean Corpuscular HGB Conc 33.3 % (30-36); Mean Corpuscular Hemoglobin 29.4 PG (26-34); Mean Corpuscular Volume 88.4 fL (80-100); Monocytes Absolute Auto 800 /uL (0-900); Monocytes Percent Auto 7.1 % (3-14); Neutrophils Absolute Auto 6500 /uL (1500-7000); Neutrophils Percent Auto 59.5 % (50-75); Platelet Count 257 X10^3/uL (150-400); Red Blood Cell Count 4.58 X10^6/uL (4.0-5.2); Red Cell Distribution Width 14.5 % (11.6-14.8); White Blood Cell Count 10.9 X10^3/uL (4.5-11.0)
[2023-11-25 20:28] LABS: Alanine Aminotransferase 24 IU/L (<35); Albumin 3.9 g/dL (3.5-5.0); Albumin Globulin Ratio 1.4 (1.0-2.8); Alkaline Phosphatase 81 U/L (38-126); Aspartate Aminotransferase 25 IU/L (14-36); BUN Creatinine Ratio 34.4 (6-22); Bilirubin Total 0.3 mg/dL (0.2-1.3); Blood Urea Nitrogen 32 mg/dL (7-17); Calcium 9.2 mg/dL (8.4-10.2); Carbon Dioxide 25 mmol/L (22-32); Chloride 103 mmol/L (98-107); Estimated Glomerular Filt Rate > 60 mL/min (>60); Globulin 2.8 g/dL (1.7-4.1); Glucose 95 mg/dL (80-110); HEMOLYSIS < 15 (0-50); Lipase 103 U/L (23-300); Potassium 3.8 mmol/L (3.4-5.1); Sodium 137 mmol/L (137-145); Total Protein 6.7 g/dL (6.3-8.2)
[2023-11-25] MEDS: cefTRIAXone 2,000 MG VIAL 1000 MG IM (21:03)
[2023-11-25] MEDS: HYDROMORPHONE 1 MG INJ IM (21:04)
[2023-11-25] MEDS: ONDANSETRON 4 MG ODT SL (21:05)
[2023-11-25 21:15] VITALS: BP 174/87; PULSE 63; RESP 20; TEMP 36.9; O2SAT 97
[2023-11-25 21:17] VITALS: PULSE 63; O2SAT 94
== END 2023-11-25 21:15 | disposition home or self-care (01) ==
PROVIDERS: Emergency Provider Emergency Medicine; PCP Family Medicine
DX: N12 Tubulo-interstitial nephritis, not specified as acute or chronic (principal)
CPT/HCPCS: 36415; 74176; 80053; 81003; 81015; 83690; 85025; 87086; 96372; 99284; J0696; J1170

== ENCOUNTER 2024-04-22 18:32 | Emergency (ER) | payer MEDICARE, MEDICAID, SELFPAY ==
[2024-04-22 18:51] VITALS: BP 145/75; PULSE 82; RESP 17; TEMP 36.7; O2SAT 97; BMI 48.4
== END 2024-04-22 20:50 | disposition left against medical advice (07) ==
PROVIDERS: Emergency Provider Emergency Medicine; PCP Family Medicine
CPT/HCPCS: 99281

== ENCOUNTER → 2025-06-04 11:09 | Outpatient (CLI) | payer MEDICARE, MEDICAID, SELFPAY | PROVIDERS: PCP Family Medicine; Referring Provider Family Medicine; Visit Provider Surgery | DX: L98.492 Non-pressure chronic ulcer of skin of other sites with fat layer exposed (principal); E66.01 Morbid (severe) obesity due to excess calories; Z68.41 Body mass index [BMI] 40.0-44.9, adult; F17.210 Nicotine dependence, cigarettes, uncomplicated; I10 Essential (primary) hypertension; Z85.42 Personal history of malignant neoplasm of other parts of uterus; N32.81 Overactive bladder; M16.0 Bilateral primary osteoarthritis of hip; M87.851 Other osteonecrosis, right femur; G47.33 Obstructive sleep apnea (adult) (pediatric); E03.9 Hypothyroidism, unspecified | CPT/HCPCS: 11042; 87070; 87205; 99203; 99213 ==

== ENCOUNTER 2025-06-11 14:10 | Emergency (ER) | payer MEDICARE, MEDICAID, SELFPAY ==
[2025-06-11 14:31] VITALS: BP 165/96; PULSE 75; RESP 18; TEMP 36.4; O2SAT 99; BMI 44.4
--- NOTE | 2025-06-11 15:18 | ED.HA ---
HPI - Headache <Nat Szymanski PA-C - Last Filed: 06/11/25 18:48> General Chief Complaint: Headache Stated Complaint: Migraine today Time Seen by Provider: 06/11/25 14:12 Mode of arrival: Wheelchair History of Present Illness HPI Narrative: Florencia Blankenship, is a very pleasant 65-year-old female with a long history of migraine headaches who presents to the emergency department for a migraine headache since 3:00 a.m. Patient states she has been suffering with migraines and she was 12 years old, she typically takes Fioricet however this did not help today's migraine. Migraine feels identical to all previous migraines which she describes as a pain starting the center of her forehead and spreading to the right side of her scalp. She does have numerous medication allergies and typically her migraines only go away with Dilaudid and Zofran. She denies any new or different migraine symptoms, fevers, chills, neck pain, trauma to the head, blood thinner use. No visual disturbance but she does have sensitivity to light. She is here with a friend. Related Data Home Medications ?Medication ?Instructions ?Recorded ?Confirmed albuterol sulfate 90 mcg/actuation 2 puff inhalation Q4-6H PRN 08/14/19 08/14/19 aerosol inhaler (Ventolin HFA) Shortness Of Breath Or Wheezing amlodipine 10 mg tablet 10 mg PO DAILY 08/14/19 08/14/19 buspirone 10 mg tablet 10 mg PO DAILY 08/14/19 08/14/19 [id number] 1 cap PO Q4H PRN Headache 08/14/19 08/14/19 50 mg-325 mg-40 mg capsule butorphanol 10 mg/mL nasal spray 1 - 2 spray intranasal PRN PRN 08/14/19 08/14/19 Headache celecoxib 200 mg capsule 200 mg PO BID 08/14/19 08/14/19 conjugated estrogens 1.25 mg 1.25 mg PO DAILY 08/14/19 08/14/19 tablet (Premarin) escitalopram oxalate 20 mg tablet 20 mg PO BID 08/14/19 08/14/19 gabapentin 300 mg capsule 300 mg PO TID 08/14/19 08/14/19 levothyroxine 200 mcg tablet 200 mcg PO DAILY 08/14/19 08/14/19 lisinopril 10 mg tablet 10 mg PO DAILY 08/14/19 08/14/19 tamsulosin 0.4 mg capsule 0.4 mg PO DAILY 08/14/19 08/14/19 tizanidine 4 mg tablet 4 mg PO TID PRN Spasms 08/14/19 08/14/19 Previous Rx's ?Medication ?Instructions ?Recorded oxycodone 5 mg tablet 5 mg PO Q8H PRN pain #14 tabs 08/14/19 Allergies Allergy/AdvReac Type Severity Reaction Status Date / Time chlorpromazine (From Allergy Severe Swelling Verified 06/11/25 14:31 Thorazine) of Lip/Tongue/Throat droperidol (From Inapsine) Allergy Severe Seizure Verified 06/11/25 14:31 ketorolac Allergy Severe Swelling Verified 06/11/25 14:31 of Lip/Tongue/Throat meperidine Allergy Severe Rash Verified 06/11/25 14:31 metoclopramide Allergy Severe Seizure Verified 06/11/25 14:31 morphine Allergy Severe ITCHING Verified 06/11/25 14:31 prochlorperazine Allergy Severe Hives Verified 06/11/25 14:31 sumatriptan Allergy Severe Hives Verified 06/11/25 14:31 midazolam (From Versed) Allergy Hallucinati Verified 06/11/25 14:31 ng tramadol Allergy Hallucinati Verified 06/11/25 14:31 ng Review of Systems <Nat Szymanski PA-C - Last Filed: 06/11/25 18:48> Review of Systems ROS Unobtainable: All systems reviewed & are unremarkable except as noted in HPI and below Patient History <Nat Szymanski PA-C - Last Filed: 06/11/25 18:48> Social History Smoking Status: Current every day smoker Smoking Status: Current every day smoker alcohol intake frequency: other Exam <Nat Szymanski PA-C - Last Filed: 06/11/25 18:48> Narrative Exam Narrative: GENERAL: 65 year old patient appears stated age. Well-developed patient, in no acute distress. HEAD: Atraumatic. Normocephalic. EYES: Sunglasses removed revealing PERRL. Extraocular motions intact. No scleral icterus. No injection or drainage. ENT: Nose without bleeding, purulent drainage. Throat without erythema, tonsillar hypertrophy or exudate. Airway patent. NECK: Trachea midline. Cervical ROM intact. CARDIOVASCULAR: Regular rate and rhythm. RESPIRATORY: ?Nonlabored respirations. ?Speaking in clear, full sentences. ?Clear to auscultation. Breath sounds equal bilaterally. No wheezes, rales, or rhonchi. ? NEURO: AOx3. ?Clear speech. ?Moves all 4 extremities appropriately. No facial asymmetry. SKIN: No rash or erythema of visible areas Initial Vital Signs Initial Vital Signs: Vital Signs Temperature 97.5 F L 06/11/25 14:31 Pulse Rate 75 06/11/25 14:31 Respiratory Rate 18 06/11/25 14:31 Blood Pressure 165/96 H 06/11/25 14:31 Pulse Oximetry 99 06/11/25 14:31 Oxygen Delivery Method Room Air 06/11/25 14:31 <Sofía Dominguez MD - Last Filed: 06/14/25 08:06> Initial Vital Signs Initial Vital Signs: Vital Signs Temperature 97.5 F L 06/11/25 14:31 Pulse Rate 75 06/11/25 14:31 Respiratory Rate 18 06/11/25 14:31 Blood Pressure 165/96 H 06/11/25 14:31 Pulse Oximetry 99 06/11/25 14:31 Oxygen Delivery Method Room Air 06/11/25 14:31 Course <Nat Szymanski PA-C - Last Filed: 06/11/25 18:48> Orders Ordered: Discontinued Medications Hydromorphone HCl (Hydromorphone 1 Mg Inj) 1 mg IV NOW ONE Stop: 06/11/25 15:25 Last Admin: 06/11/25 16:08 Dose: 1 mg Documented By: LM Hydromorphone HCl (Hydromorphone 1 Mg Inj) 1 mg IV NOW ONE Stop: 06/11/25 16:55 Last Admin: 06/11/25 17:32 Dose: 1 mg Documented By: LM Sodium Chloride (Normal Saline 0.9%) 1,000 mls @ 1,000 mls/hr IV BOLUS ONE Stop: 06/11/25 16:23 Last Infusion: 06/11/25 17:32 Dose: Infused Documented By: Admin: 06/11/25 16:07 Dose: 1,000 mls/hr Documented By: LM Ondansetron HCl (Ondansetron 4 Mg/2 Ml Inj) 4 mg IV NOW ONE Stop: 06/11/25 15:25 Last Admin: 06/11/25 16:08 Dose: 4 mg Documented By: LM Vital Signs Vital signs: Vital Signs - 8 hr 06/11/25 14:31 06/11/25 18:02 Temperature 97.5 F L 97.6 F Pulse Rate 75 70 Respiratory Rate 18 18 Blood Pressure 165/96 H 189/96 H Pulse Oximetry 99 98 Oxygen Delivery Method Room Air Room Air <Sofía Dominguez MD - Last Filed: 06/14/25 08:06> Orders Ordered: Discontinued Medications Hydromorphone HCl (Hydromorphone 1 Mg Inj) 1 mg IV NOW ONE Stop: 06/11/25 15:25 Last Admin: 06/11/25 16:08 Dose: 1 mg Documented By: LM Hydromorphone HCl (Hydromorphone 1 Mg Inj) 1 mg IV NOW ONE Stop: 06/11/25 16:55 Last Admin: 06/11/25 17:32 Dose: 1 mg Documented By: LM Sodium Chloride (Normal Saline 0.9%) 1,000 mls @ 1,000 mls/hr IV BOLUS ONE Stop: 06/11/25 16:23 Last Infusion: 06/11/25 17:32 Dose: Infused Documented By: Admin: 06/11/25 16:07 Dose: 1,000 mls/hr Documented By: LM Ondansetron HCl (Ondansetron 4 Mg/2 Ml Inj) 4 mg IV NOW ONE Stop: 06/11/25 15:25 Last Admin: 06/11/25 16:08 Dose: 4 mg Documented By: LM Vital Signs Vital signs: Vital Signs - 8 hr 06/11/25 14:31 06/11/25 18:02 Temperature 97.5 F L 97.6 F Pulse Rate 75 70 Respiratory Rate 18 18 Blood Pressure 165/96 H 189/96 H Pulse Oximetry 99 98 Oxygen Delivery Method Room Air Room Air MDM - Headache <Nat Szymanski PA-C - Last Filed: 06/11/25 18:48> Medical Records Attestation: I reviewed the patient's medical records. MDM Narrative Medical decision making narrative: 65-year-old female with a long history of migraine headaches who presents to the emergency department for a migraine headache since 3:00 a.m. Differential diagnosis includes but is not limited to breakthrough migraine, cluster headache, etc. On exam the patient is in no acute distress, nontoxic appearing, vital signs appropriate except for mildly elevated blood pressure. She describes her symptoms as identical to previous breakthrough migraines. Dilaudid and Zofran only medications that work for her, she is allergic to majority of other migraine cocktail type medications. No focal neurologic deficits, no fevers, no trauma, no meningeal signs. No indication for emergent imaging at this time. We will treat patient with fluids Dilaudid and Zofran. Patient's pain improved significantly after ED treatment. She is eager for discharge home. Recommended continuing her normal home regimen, discussed ED return precautions follow up with PCP. She verbalized understanding of all information is agreeable with the plan. She is stable for discharge home. Discharge Plan Departure Patient Disposition: Home Clinical Impression: Migraine headache without aura Qualifiers: Status migrainosus presence: without status migrainosus Intractability: not intractable Qualified Code(s): G43.009 - Migraine without aura, not intractable, without status migrainosus Instructions: DI for Migraine Activity Restrictions/Additional Instructions: Thank you for coming to the emergency department. I am very sorry that you are dealing with a breakthrough migraine today but I am happy that we were able to improve your pain. Please follow up with your primary care doctor or as always return to the emergency department with any concerns. Please follow up with your primary care doctor within the next 2-3 days for ER follow-up. (If you do not have a PCP you can call [phone]. ?to schedule an appointment with an [facility] Primary Care Provider) IF YOU DEVELOP ANY NEW OR WORSENING SYMPTOMS, RETURN TO THE ER! Please read the attached instructions, they highlight more specific treatments and interventions for you at home. Thank you for letting me participate in your care, Nat Szymanski PA-C Prescriptions: No Action celecoxib 200 mg capsule 200 mg PO BID Patient Comments: TK 1 C PO BID PRF PAIN butorphanol 10 mg/mL spray,non-aerosol 1 - 2 spray INTRANASAL PRN PRN (Reason: Headache) Rx Instructions: INSTILL ONE TO TWO SPRAYS IN EACH NOSTRIL UP TO Q 8 H PRF HEADACHE [id number] 50-325-40 mg capsule 1 cap PO Q4H PRN (Reason: Headache) Patient Comments: TK 1 C PO Q 4 H PRF GUZMÁN tizanidine 4 mg tablet 4 mg PO TID PRN (Reason: Spasms) Patient Comments: TK 1 T PO TID PRN tamsulosin 0.4 mg capsule 0.4 mg PO DAILY amlodipine 10 mg tablet 10 mg PO DAILY buspirone 10 mg tablet 10 mg PO DAILY lisinopril 10 mg tablet 10 mg PO DAILY Patient Comments: TK 1 T PO QD FOR HIGH BP gabapentin 300 mg capsule 300 mg PO TID levothyroxine 200 mcg tablet 200 mcg PO DAILY Patient Comments: TK 1 T PO D albuterol sulfate [Ventolin HFA] 90 mcg/actuation HFA aerosol inhaler 2 puff inhalation Q4-6H PRN (Reason: Shortness Of Breath Or Wheezing) Patient Comments: INHALE 2 PUFFS PO Q FOUR TO SIX H PRF SHORTNESS OF BREATH OR WHEEZING Premarin 1.25 mg tablet 1.25 mg PO DAILY Patient Comments: TK 1 T PO QD escitalopram oxalate 20 mg tablet 20 mg PO BID Patient Comments: TK 1 T PO BID oxycodone 5 mg tablet 5 mg PO Q8H PRN (Reason: pain) Qty: 14 0RF Referrals: Scott Forbes MD [Primary Care Provider, Family Practice] Stand Alone Forms: Patient Portal/API ED Sign-out <Sofía Dominguez MD - Last Filed: 06/14/25 08:06> [facility]: I was immediately available in the department for consultation throughout this patient's visit. Sofía Dominguez MD
[2025-06-11] MEDS: SODIUM CHLORIDE 0.9% 1,000 ML 1000 ML IV (16:07)
[2025-06-11] MEDS: HYDROMORPHONE 1 MG INJ IV ×2 (16:08→17:32)
[2025-06-11] MEDS: ONDANSETRON 4 MG/2 ML INJ IV (16:08)
[2025-06-11 18:02] VITALS: BP 189/96; PULSE 70; RESP 18; TEMP 36.4; O2SAT 98
== END 2025-06-11 18:04 | disposition home or self-care (01) ==
PROVIDERS: Emergency Provider Physician Assistant; PCP Family Medicine
DX: G43.009 Migraine without aura, not intractable, without status migrainosus (principal); I10 Essential (primary) hypertension
CPT/HCPCS: 87070; 87205; 96361; 96374; 96375; 96376; 99283; 99284; J1171; J2405